=== PATIENT | male | born 1990 | race African-American/Black ===

== ENCOUNTER 2017-09-17 23:19 | Emergency (ER) | payer MEDICAID ==
[~2017-09-17] VITALS: Ht 185.4 cm; Wt 94.0 kg
[2017-09-17 23:23] VITALS: BP 169/81
== END 2017-09-18 01:01 | disposition left against medical advice (07) ==
LOC: ER 23:51
DX: Z53.21 Procedure and treatment not carried out due to patient leaving prior to being seen by health care provider (principal)